=== PATIENT | male | born 1950 | race Caucasian/White ===

== ENCOUNTER 2017-11-09 03:35 | Emergency (ER) | payer OTHER ==
[2017-11-09 04:44] LABS: PLATELET COUNT 154 10^3/uL (150-400)
--- NOTE | 2017-11-09 04:45 | CPEKG ---
Heart Rate: 78 RR Interval: 769 P-R Interval: 160 QRSD Interval: 152 QT Interval: 432 QTC Interval: 493 P Canon: 71 QRS Canon: 236 T Wave Canon: 113 EKG Severity - ABNORMAL ECG - EKG Impression: ATRIAL-SENSED VENTRICULAR-PACED COMPLEXES Electronically Signed By: Jonnie Pruitt 09-Nov-2017 06:26:52
[2017-11-09 04:50] LABS: INR 4.2 (0.83-1.16); PROTIME(PATIENT) 40.1 SEC (12.0-15.0)
--- NOTE | 2017-11-09 05:47 | EDPHY ---
H & P Stated Complaint: Coughing, body aches, SOB Time Seen by Provider: 11/09/17 03:55 HPI/ROS: Chief Complaint: Cough, short of breath HPI: 67-year-old male who is visiting from [place] or again. Patient has been having 3 days shortness of breath, primarily at night. Friend checked his oxygen while at rest and noticed it was about 88% 2 93%. I did improved to get up to move around. States he has not have any leg pain or swelling. Some mild dyspnea on exertion. Does have a history of congestive heart failure and takes 5 mg of Lasix a day. He does alternate does depending on how he is feeling. He has a nonproductive cough. No fevers or chills. No nausea or vomiting. No chest pain. No palpitations. Breathing does seem to be worse when he is lying down. ROS: 10 point Review of Systems is negative except as noted in the HPI. PMH: Mechanical heart valve, coronary artery disease, AICD, Parkinson's disease , congestive heart failure, cardiomyopathy Social History: Positive smoking Family History: non-contributory Physical Exam: Gen: Awake, Alert, No Distress HEENT: Nose: no rhinorrhea Eyes: PERRLA, EOMI Mouth: Moist mucosa Neck: Supple, no JVD Chest: nontender, lungs clear to auscultation, fine crackles at bilateral bases Heart: S1, S2 normal, no murmur Abd: Soft, non-tender, no guarding Back: no CVA tenderness, no midline tenderness Ext: no edema, non-tender Skin: no rash Neuro: CN II-XII intact, Sensation grossly intact, Strength 5/5 in bilateral upper and lower extremities - Personal History Current Tetanus/Diphtheria Vaccine: Yes Current Tetanus Diphtheria and Acellular Pertussis (TDAP): Yes - Medical/Surgical History Hx Asthma: No Hx Chronic Respiratory Disease: No Hx Diabetes: No Hx Cardiac Disease: Yes Hx Renal Disease: No Hx Cirrhosis: No Hx Alcoholism: No Hx HIV/AIDS: No Hx Splenectomy or Spleen Trauma: No Other PMH: Aortic stenosis, aortic valve replacement, cardiac oblation pacemaker , parkinson's disease. - Social History Smoking Status: Heavy smoker Constitutional: Initial Vital Signs Temperature (C) 36.5 C 11/09/17 03:38 Heart Rate 86 11/09/17 03:38 Respiratory Rate 18 11/09/17 03:38 Blood Pressure 111/69 11/09/17 03:38 O2 Sat (%) 93 11/09/17 03:38 O2 Delivery Mode Room Air O2 (L/minute) 2 Allergies/Adverse Reactions: No Known Allergies Allergy (Unverified 11/09/17 03:48) Home Medications: Medication Instructions Recorded Carbidopa-Levo 10-100 mg Odt 11/09/17 Carvedilol 11/09/17 Furosemide 11/09/17 LORazepam 11/09/17 Lexapro 11/09/17 Losartan Potassium 11/09/17 Spironolactone 11/09/17 Warfarin Sodium 11/09/17 Medical Decision Making - Diagnostics EKG Interpretation: ECG time 4:03 a.m., atrial sensed ventricular paced complexes. Imaging Results: Chest x-ray shows evidence of some mild cephalization with mild fluid overload. Imaging: I viewed and interpreted images myself ED Course/Re-evaluation: 67-year-old male presenting with mild shortness of breath. [place] Oxygen saturations right now are 94% on room air. Chest x-ray shows some mild cephalization. Patient states that he has a plan with his information security associate that if he needs it he will increase his on Lasix dose. He does not want to stay in the hospital. He does not have significant pedal edema at this time. Remainder of his laboratory evaluations are unremarkable. I feel that this is a reasonable plan. His INR is elevated he will reduce his warfarin dose today. He would like to go home with an increase in his Lasix dose. He will return for any concerns. He will follow up with information security associate returns to [place] on Saturday. - Data Points Laboratory Results: Laboratory Results 11/09/17 04:33 11/09/17 04:33 11/09/17 11/09/17 11/09/17 04:35 04:33 04:33 WBC RBC Hgb Hct MCV MCH MCHC RDW Plt Count MPV Neut % (Auto) Lymph % (Auto) Maries % (Auto) Eos % (Auto) Baso % (Auto) Nucleat RBC Rel Count Absolute Neuts (auto) Absolute Lymphs (auto) Absolute Monos (auto) Absolute Eos (auto) Absolute Basos (auto) Absolute Nucleated RBC Immature Gran % Immature Gran # PT 40.1 SEC H SEC (12.0-15.0) INR 4.20 H (0.83-1.16) APTT 59.6 SEC H SEC (23.0-38.0) Sodium 138 mEq/L mEq/L (135-145) Potassium 4.2 mEq/L mEq/L (3.3-5.0) Chloride 109 mEq/L mEq/L (97-110) Carbon Dioxide 23 mEq/l mEq/l (22-31) Anion Gap 6 mEq/L L mEq/L (8-16) BUN 19 mg/dL mg/dL (7-23) Creatinine 0.6 mg/dL L mg/dL (0.7-1.3) Estimated GFR > 60 Glucose 97 mg/dL mg/dL (70-100) Calcium 8.9 mg/dL mg/dL (8.5-10.4) POC Troponin I 0.05 ng/mL ng/mL (0.00-0.08) 11/09/17 04:33 WBC 5.68 10^3/uL 10^3/uL (3.80-9.50) RBC 3.84 10^6/uL L 10^6/uL (4.40-6.38) Hgb 12.4 g/dL L g/dL (13.7-17.5) Hct 36.3 % L % (40.0-51.0) MCV 94.5 fL fL (81.5-99.8) MCH 32.3 pg pg (27.9-34.1) MCHC 34.2 g/dL g/dL (32.4-36.7) RDW 12.4 % % (11.5-15.2) Plt Count 154 10^3/uL 10^3/uL (150-400) MPV 11.4 fL fL (8.7-11.7) Neut % (Auto) 73.9 % % (39.3-74.2) Lymph % (Auto) 12.3 % L % (15.0-45.0) Maries % (Auto) 12.5 % % (4.5-13.0) Eos % (Auto) 0.7 % % (0.6-7.6) Baso % (Auto) 0.4 % % (0.3-1.7) Nucleat RBC Rel Count 0.0 % % (0.0-0.2) Absolute Neuts (auto) 4.20 10^3/uL 10^3/uL (1.70-6.50) Absolute Lymphs (auto) 0.70 10^3/uL L 10^3/uL (1.00-3.00) Absolute Monos (auto) 0.71 10^3/uL 10^3/uL (0.30-0.80) Absolute Eos (auto) 0.04 10^3/uL 10^3/uL (0.03-0.40) Absolute Basos (auto) 0.02 10^3/uL 10^3/uL (0.02-0.10) Absolute Nucleated RBC 0.00 10^3/uL 10^3/uL (0-0.01) Immature Gran % 0.2 % % (0.0-1.1) Immature Gran # 0.01 10^3/uL 10^3/uL (0.00-0.10) PT INR APTT Sodium Potassium Chloride Carbon Dioxide Anion Gap BUN Creatinine Estimated GFR Glucose Calcium POC Troponin I Point of Care Test Results: Chemistry 11/09/17 04:35 POC Troponin I 0.05 ng/mL ng/mL (0.00-0.08) Departure - Departure Disposition: Home, Routine, Self-Care Clinical Impression: Shortness of breath Condition: Good Instructions: Heart Failure (ED), Dyspnea (ED) Additional Instructions: Follow up with her information security associate when you return home. Return to the emergency department for increasing shortness of breath, chest pain, fevers, chills, worsening cough, or any other concerns. Referrals: [facility] [Other] - As per Instructions
[2017-11-09 06:04] VITALS: BP 128/74
== END 2017-11-09 06:03 | disposition home or self-care (01) ==
DX: R06.02 Shortness of breath (principal); G20 Parkinson's disease; F17.200 Nicotine dependence, unspecified, uncomplicated; Z79.01 Long term (current) use of anticoagulants; Z95.0 Presence of cardiac pacemaker
CPT/HCPCS: 84484-PO